=== PATIENT | female | born 1980 | race Asian ===

== ENCOUNTER 2020-08-06 16:19 | Emergency (ER) | payer BC ==
[~2020-08-06] VITALS: Ht 160 cm; Wt 50.0 kg
[2020-08-06 16:39] VITALS: TEMP 99
[2020-08-06 17:37] LABS: HEMATOCRIT 39.3 % (37.0-47.0); HEMOGLOBIN 13.4 g/dl (12.5-16.0); MEAN CELL VOLUME 90 fl (80.0-100.0); MEAN CORPUSCULAR HEMOGLOBIN 31 pg (27.0-31.0); MEAN CORPUSCULAR HGB CONC 34 g/dl (33.0-37.0); MEAN PLATELET VOLUME 10.4 fl (7.4-10.4); PLATELET COUNT 224 K/mm3 (130-400); RED BLOOD COUNT 4.36 M/mm3 (4.10-5.30); REDCELL DISTRIBUTION WIDTH-CV 11.4 % (11.5-14.5)
[2020-08-06 18:20] LABS: EOSINOPHIL 4 % (0-4); LYMPHOCYTE 41 % (20.0-51.0); MYELOCYTE 1 % (0-0); NEUTROPHILS 44 % (42.0-75.2)
[2020-08-06 18:21] LABS: PLATELET ESTIMATE NORMAL (NORMAL)
[2020-08-06 19:30] VITALS: BP 100/64; PULSE 66
[2020-08-07 09:00] LABS: PATHOLOGY DIFF REVIEW OK
== END 2020-08-06 19:30 | disposition home or self-care (01) ==
LOC: COL.ER 16:19
PROVIDERS: Physician Assistant
DX: U07.1 COVID-19 (principal); Z32.02 Encounter for pregnancy test, result negative
CPT/HCPCS: J1885; J7030

== ENCOUNTER 2021-04-30 08:40 | Emergency (ER) | payer BC ==
[~2021-04-30] VITALS: Ht 160 cm; Wt 50.0 kg
[2021-04-30 08:46] VITALS: TEMP 99
[2021-04-30] MEDS ORDERED: CLEOCIN HCL300 MG PO (09:22)
[2021-04-30] MEDS ORDERED: FLAGYL500 MG PO (09:22)
[2021-04-30 09:23] LABS: BASO % 0.4 % (0.0-2.0); EOS # 0.1 (0.0-0.7); EOS % 0.7 % (0-4.0); GRAN # 8.4 (1.4-6.5); HEMATOCRIT 42.1 % (37.0-47.0); HEMOGLOBIN 14.3 g/dl (12.5-16.0); LYMPH # 1.1 (1.2-3.4); LYMPH % 10.5 % (20.0-51.0); MEAN CELL VOLUME 91 fl (80.0-100.0); MEAN CORPUSCULAR HEMOGLOBIN 31 pg (27.0-31.0); MEAN CORPUSCULAR HGB CONC 34 g/dl (33.0-37.0); MEAN PLATELET VOLUME 9.9 fl (7.4-10.4); MONO # 0.6 (0.1-0.6); MONO % 6.3 % (1.7-9.3); PLATELET COUNT 263 K/mm3 (130-400); RED BLOOD COUNT 4.61 M/mm3 (4.10-5.30); REDCELL DISTRIBUTION WIDTH-CV 11.7 % (11.5-14.5)
[2021-04-30 09:36] LABS: BILIRUBIN,TOTAL 1.2 mg/dL (0.0-1.0); CALCIUM 9.4 mg/dL (8.4-10.2); CREATININE, serum 0.57 (0.52-1.25); POTASSIUM 3.8 mmol/L (3.4-5.0); TOTAL PROTEIN 8.8 gm/dL (6.4-8.2)
[2021-04-30 11:59] VITALS: BP 117/80; PULSE 86
== END 2021-04-30 12:01 | disposition home or self-care (01) ==
LOC: COL.ER 08:40
PROVIDERS: Emergency Medicine
DX: K04.7 Periapical abscess without sinus (principal); Z88.1 Allergy status to other antibiotic agents
CPT/HCPCS: Q9967